=== PATIENT | female | born 1980 | race Caucasian/White ===

== ENCOUNTER 2019-05-13 12:21 | Emergency (ER) | payer OTHER | END 2019-05-13 13:26 | disposition home or self-care (01) | LOC: JERFT 12:21 ==

== ENCOUNTER 2019-08-20 22:05 | Emergency (ER) | payer OTHER ==
[2019-08-20 22:16] VITALS: BP 131/93; PULSE 115; TEMP 98.7; BMI 30.9
[2019-08-21] MEDS ORDERED: ACETAMINOPHEN 325 MG TABLET (FP) PO ONE (00:10)
--- NOTE | 2019-08-21 00:13 | PDOC ---
History of Present Illness - General Chief Complaint: Cold Symptoms Stated Complaint: BODY ACHE Time Seen by Provider: 08/20/19 23:31 History Source: Patient - History of Present Illness Initial Comments: 08/21/19 00:09 39 year old female with bodyaches, frequency of urine. denies fever/ chills. denies vaginal discharge denies nvd, abdominal pain, pmhx: none 08/21/19 00:18 Past History - Past Medical History Allergies/Adverse Reactions: Allergies Allergy/AdvReac Type Severity Reaction Status Date / Time No Known Allergies Allergy Verified 08/20/19 22:16 Home Medications: Ambulatory Orders Ibuprofen [Ibu] 600 mg PO TID #20 tablet 05/13/19 Cefuroxime Axetil [Cefuroxime] 500 mg PO BID #20 tablet 08/21/19 COPD: No Diabetes: Yes (NIDDM no meds) Other medical history: neuropathy, 3 bulging discs cervical spine - Psycho Social/Smoking Cessation Hx Smoking History: Never smoked Hx Alcohol Use: No Drug/Substance Use Hx: No *Physical Exam - Vital Signs Last Vital Signs Temp Pulse Resp BP Pulse Ox 98.7 F 115 H 18 131/93 99 08/20/19 22:13 08/20/19 22:13 08/20/19 22:13 08/20/19 22:13 08/20/19 22:13 - Physical Exam General Appearance: Yes: Appropriately Dressed Respiratory/Chest: positive: Lungs Clear, Normal Breath Sounds Gastrointestinal/Abdominal: positive: Normal Bowel Sounds, Soft. negative: Tender Musculoskeletal: negative: CVA Tenderness Integumentary: positive: Normal Color, Dry, Warm Neurologic: positive: Fully Oriented, Alert ED Progress Note - Progress Note Progress Note: 08/21/19 04:27 A: UTI P: ua urine culture urine influenza negative Medical Decision Making - Medical Decision Making repeat HRT 95-100 Discharge - Discharge Information Problems reviewed: Yes Clinical Impression/Diagnosis: UTI (urinary tract infection) Qualifiers: Urinary tract infection type: acute cystitis Hematuria presence: without hematuria Qualified Code(s): N30.00 - Acute cystitis without hematuria Condition: Stable Disposition: HOME - Additional Discharge Information Prescriptions: Cefuroxime Axetil [Cefuroxime] 500 mg PO BID #20 tablet - Follow up/Referral Referrals: Saurav Judge MD [Primary Care Provider] - - Patient Discharge Instructions Patient Printed Discharge Instructions: Urinary Tract Infection Additional Instructions: Drink plenty of fluids Take ibuprofen every 6 hours as needed for pain Take cefuroxime as prescribed Follow-up with your primary care doctor as soon as possible. You need to repeat urine test once your antibiotic is completed. We will call you if you're antibiotic needs to be changed. - Post Discharge Activity Work/Back to School Note: Back to Work
[2019-08-21 00:49] LABS: EPI CELLS 2.5 /HPF (0-5/HPF); HYALINE CASTS 0 /lpf (0-8); URINE APPEARANCE CLEAR; URINE BACTERIA 998.7 /hpf (NEGATIVE); URINE BILIRUBIN NEGATIVE (NEGATIVE); URINE COLOR YELLOW; URINE GLUCOSE (UA) NEGATIVE (NEGATIVE); URINE KETONE 1+ (NEGATIVE); URINE LEUK ESTERASE TRACE (NEGATIVE); URINE NITRITE NEGATIVE (NEGATIVE); URINE PROTEIN NEGATIVE (NEGATIVE); URINE RBC 1 /hpf (0-4); URINE UROBILINOGEN 0.2 mg/dL (0.2-1.0); URINE WBC 7 /hpf (0-5)
[2019-08-21] MEDS ORDERED: ACETAMINOPHEN 325 MG TABLET (FP) ONE (00:59)
== END 2019-08-21 01:30 | disposition home or self-care (01) ==
LOC: JER 22:05
DX: E11.9 Type 2 diabetes mellitus without complications (principal); G62.9 Polyneuropathy, unspecified; M50.20 Other cervical disc displacement, unspecified cervical region
CPT/HCPCS: 81003; 84703; 87086; 87186; 87804; 99282-25